=== PATIENT | female | born 1960 | race Caucasian/White ===

== ENCOUNTER → 2017-07-03 | Outpatient (CLI) | payer OTHER | END | disposition home or self-care (01) | LOC: GMAB 14:04 | PROVIDERS: ATTEND Family Medicine | DX: R31.21 Asymptomatic microscopic hematuria (principal) ==

== ENCOUNTER → 2017-07-04 | Outpatient (CLI) | payer OTHER ==
--- NOTE | 2017-07-04 12:50 | US ---
EXAM DESCRIPTION: Thyroid CLINICAL HISTORY: 57 years Female, NODULE COMPARISON: July 03, 2015, February 16, 2012. FINDINGS: The right lobe measures 4.6 x 2.2 x 2.6 cm and left lobe 4.3 x 1.7 x 1.6 cm with the isthmus is 3 mm in thickness. Both lobes are extremely heterogeneous and nodular in appearance. This pattern and appearance is very similar to that seen in 2015. On the right in the upper pole is a wider than tall oval mixed hyperechoic and hypoechoic 2.5 x 1.5 x 1.6 cm nodule. Post yearly in the mid right lobe is a isoechoic 2.3 x 1.3 x 1.1 cm nodule. Anteriorly in the mid right lobe is a 2.0 x 1.8 x 1.1 cm nodule. On the left, posteriorly in the mid left lobe is a wider than tall mixed hyperechoic and hypoechoic 1.4 x 0.9 x 0.7 cm nodule. More anteriorly in the upper pole is a wider than tall mixed hyperechoic and hypoechoic 1.7 x 1.0 x 0.8 cm nodule more anteriorly in the middle lobe is an elongated 2.5 x 0.8 x 0.7 cm nodule. Again this is mixed hyperechoic and hypoechoic in appearance. Along the right side of the isthmus is a wider than tall hyperechoic slightly heterogeneous 1.5 x 1.2 x 0.7 cm nodule. Overall the appearance is little change in comparison to two prior studies with a pattern most consistent with a multinodular goiter and not rapid enlargement of a dominant nodule not evident. IMPRESSION: 1. Borderline thyromegaly with each lobe consisting of a collection of solid heterogeneous mixed hyperechoic and hypoechoic nodules with overall very little change from previous 2011 and 2014 examination. 2. Because of the number and size of nodules are not continued close sonographic follow-up to assess for a possible significant enlargement of a new nodule is recommended with repeat imaging in approximately one year. Electronically signed by: Momo Sanchez MD 07/04/2017 12:49 PM CDT
== END | disposition home or self-care (01) ==
LOC: US 07:57
PROVIDERS: ATTEND Family Medicine
DX: E04.1 Nontoxic single thyroid nodule (principal)

== ENCOUNTER → 2020-08-17 | Outpatient (CLI) | payer BC | LOC: GMAE 10:53 | PROVIDERS: ATTEND Family Medicine | DX: Z00.00 Encounter for general adult medical examination without abnormal findings (principal) ==